=== PATIENT | male | born 1970 | race Caucasian/White ===

== ENCOUNTER → 2016-11-28 | Outpatient (CLI) | payer OTHER ==
[~2016-11-28] MED LIST: CRAN500C2 PO; GABA600T PO; MULT-506 PO; PROB1TAB16 PO
--- NOTE | 2016-11-28 09:00 | DIAGNOSTIC IMAGING REPORT ---
ULTRASOUND KIDNEYS AND BLADDER CLINICAL HISTORY: Neurogenic bladder. Urinary tract infection. Incontinence. COMPARISON STUDY: Renal ultrasound dated 11/29/2015. TECHNIQUE: Real-time, grayscale, and color flow sonography of the kidneys and bladder is performed. Images are reviewed in the transverse and longitudinal planes. FINDINGS: Kidneys: The kidneys are normal in size and echotexture. The right kidney measures 10.9 x 4.7 x 5.4 cm and the left kidney measures 10.6 x 6.0 x 5.2 cm. There is no hydronephrosis. Minimal fullness of the left renal collecting system is less apparent than previous. No shadowing renal calculi are identified. There is no sonographic evidence of contour deforming renal mass lesion. No perinephric fluid is identified. Bladder: Bladder is partially decompressed. Intraluminal debris is noted. The bladder wall appears trabeculated. Both ureteral jets were seen. IMPRESSION: 1. The kidneys are normal in size and without hydronephrosis. 2. The bladder is partially decompressed and the wall appears trabeculated. 3. Intraluminal debris is noted within the bladder. Correlate clinically and with urinalysis. Electronically signed by: Dalton Nicole M.D. 11/28/2016 8:58 AM Dictated Date/Time: 11/28/2016 8:57 AM
== END | disposition home or self-care (01) ==
LOC: C.ULTR 08:33
PROVIDERS: ATTEND Urology
DX: N31.9 Neuromuscular dysfunction of bladder, unspecified (principal); N39.0 Urinary tract infection, site not specified; R32 Unspecified urinary incontinence

== ENCOUNTER → 2017-11-06 | Outpatient (CLI) | payer OTHER | END | disposition home or self-care (01) | LOC: C.LABSPEC 10:39 | PROVIDERS: ATTEND Urology | DX: R33.9 Retention of urine, unspecified (principal) ==